=== PATIENT | male | born 1970 | race Caucasian/White ===

== ENCOUNTER 2019-08-22 22:06 | Emergency (ER) | payer OTHER ==
[2019-08-22 22:15] VITALS: BP 151/88; PULSE 93; TEMP 98.6; BMI 29.0
[2019-08-22] MEDS ORDERED: DIPHTH,PERTUSS(ACELL),TET 0.5 ML DISP.SYRIN IM ONE (22:36)
--- NOTE | 2019-08-22 22:40 | PDOC ---
Documentation entered by Rosalia Garcia SCRIBE, acting as scribe for Petr Bradshaw MD. Petr Bradshaw MD: This documentation has been prepared by the chloeibe, Rosalia Garcia SCRIBE, under my direction and personally reviewed by me in its entirety. I confirm that the documentation accurately reflects all work , treatment, procedures, and medical decision making performed by me. History of Present Illness - General Chief Complaint: Pain, Acute Stated Complaint: BILATERAL LEG ABRASIONS Exam Limitations: No Limitations - History of Present Illness Initial Comments: 08/22/19 22:36 The patient is a 49-year-old male who presents to the emergency department with a wound. 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 The patient says he was able to ambulate after the incident and reports he took naproxen prior to arrival. 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 No sore throat,. No ear pain CardioVascular: No chest pain or shortness of breath Respiratory:No cough, or wheezing. Gastrointestinal: no nausea, vomiting, diarrhea or constipation, No rectal bleeding Genitourinary: No dysuria, hematuria, or frequency Musculoskeletal: No joint or muscle pain or swelling Neurologic: No headache, vertigo, dizziness or loss of consciousness Psychiatric: nor depression Skin: +wound to lower leg. No rashes or easy bruising Endocrine: no increased thirst or abnormal weight change Allergic: no skin or latex allergy All other systems reviewed and normal Physical exam: GENERAL: The patient is awake, alert, and fully oriented, in no acute distress. HEAD: Normal with no signs of trauma. EYES: Pupils equal, round and reactive to light, extraocular movements intact, sclera anicteric, conjunctiva clear. EXTREMITIES: Normal range of motion, no edema. NEUROLOGICAL: Normal speech, normal gait. PSYCH: Normal mood, normal affect. SKIN:+Bilateral anterior murray contusion, no bony tenderness, ecchymosis and abrasion to the anterior murray mid-lower leg, not actively bleeding. Warm, Dry, normal turgor, no rashes or lesions noted. 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 Patient had a leg press that came down and hit him in the shins causing an abrasion and contusion to his anterior shins. Patient is able to ambulate with minimal difficulty. Patient is here for a tetanus shot primarily. Patient did not have any bony tenderness on palpation so x-rays were not done. Patient's abrasions were cleaned and dressed and patient was discharged. 08/22/19 22:46 Past History - Past Medical History Allergies/Adverse Reactions: Allergies Allergy/AdvReac Type Severity Reaction Status Date / Time No Known Allergies Allergy Unverified 04/24/15 22:47 Home Medications: Ambulatory Orders BUPROPion HCL "SR" [Wellbutrin Sr [Nf]] 150 mg PO BID 04/24/15 Pregabalin [Lyrica] 50 mg PO DAILY 04/24/15 Cyclobenzaprine HCl [Flexeril -] 10 mg PO TID #21 tablet 11/27/15 Psychiatric Problems: Yes - Psycho Social/Smoking Cessation Hx Smoking History: Current some day smoker Have you smoked in the past 12 months: Yes 'Breaking Loose' booklet given: 11/27/15 *Physical Exam - Vital Signs Last Vital Signs Temp Pulse Resp BP Pulse Ox 98.6 F 93 H 14 151/88 97 08/22/19 22:08 08/22/19 22:08 08/22/19 22:08 08/22/19 22:08 08/22/19 22:08 Discharge - Discharge Information Problems reviewed: Yes Clinical Impression/Diagnosis: Abrasion of leg, left Qualifiers: Encounter type: initial encounter Qualified Code(s): S80.812A - Abrasion, left lower leg, initial encounter Abrasion of leg, right Qualifiers: Encounter type: initial encounter Qualified Code(s): S80.811A - Abrasion, right lower leg, initial encounter Condition: Good Disposition: HOME - Follow up/Referral Referrals: Susana Allen MD [Primary Care Provider] - - Patient Discharge Instructions Additional Instructions: For the pain you can take naproxen or Motrin as needed. Clean the abrasions daily with some peroxide and apply bacitracin until they are scabbed over. Return to the emergency department immediately with ANY new, persistent or worsening symptoms. Continue any medications as previously prescribed by your physician. You should follow up with your primary doctor as soon as possible regarding today's emergency department visit. . Please make sure your doctor reviews the results of your emergency evaluation. Thank you for coming to the Emergency Department today for your care. It was a pleasure to see you today. Please note that your evaluation is INCOMPLETE until you follow-up with your doctor. - Post Discharge Activity
[2019-08-22] MEDS ORDERED: TETANUS AND DIPHTHERIA TOXOID 0.5 ML DISP.SYRIN IM ONE (23:02)
== END 2019-08-22 23:07 | disposition home or self-care (01) ==
LOC: FER 22:06
PROC: 3E0234Z Introduction of Serum, Toxoid and Vaccine into Muscle, Percutaneous Approach (ICD-10-PCS; principal; 2019-08-22)
DX: S80.811A Abrasion, right lower leg, initial encounter (principal); S80.812A Abrasion, left lower leg, initial encounter; W20.8XXA Other cause of strike by thrown, projected or falling object, initial encounter; Y93.89 Activity, other specified; Y92.39 Other specified sports and athletic area as the place of occurrence of the external cause; Y99.0 Civilian activity done for income or pay; F17.210 Nicotine dependence, cigarettes, uncomplicated
CPT/HCPCS: 90715; 99282-25

== ENCOUNTER 2025-07-14 08:36 | Emergency (ER) | payer OTHER ==
[2025-07-14] MEDS ORDERED: ONDANSETRON 4 MG/2 ML VIAL ONE (08:52)
[2025-07-14 08:58] VITALS: BP 142/95; PULSE 109; RESP 18; TEMP 97.5; BMI 26.6
[2025-07-14] MEDS: SODIUM CHLORIDE 1,000 ML IV STA (09:16)
[2025-07-14] MEDS: ONDANSETRON 4 MG/2 ML VIAL IVPB ONE (09:16)
[2025-07-14 10:01] LABS: ABSOLUTE IMMATURE GRANULOCYTES 0.05 x10^3/uL (0.0-0.031); BASOPHILS # 0.01 x10^3/uL (0.01-0.08); EOSINOPHIL % 0.1 % (0.8-7.0); EOSINOPHILS # 0.01 x10^3/uL (0.04-0.54); MCHC 33.0 g/dl (32.3-36.5); MEAN CELL VOLUME 89.5 fl (79.0-92.2); MEAN PLT VOLUME 9.9 fl (9.4-12.4); MONOCYTE # 0.99 x10^3/uL (0.30-0.82); MONOCYTE % 7.2 % (5.3-12.2); RDW 14.6 % (12.2-16.1)
== END 2025-07-14 10:24 | disposition home or self-care (01) ==
LOC: FER 08:36
PROC: 3E033GC Introduction of Other Therapeutic Substance into Peripheral Vein, Percutaneous Approach (ICD-10-PCS; principal; 2025-07-14)
PROC: 3E0337Z Introduction of Electrolytic and Water Balance Substance into Peripheral Vein, Percutaneous Approach (ICD-10-PCS; 2025-07-14)
DX: R11.2 Nausea with vomiting, unspecified (principal); R10.13 Epigastric pain; T50.905A Adverse effect of unspecified drugs, medicaments and biological substances, initial encounter
CPT/HCPCS: 36415; 85025; 99284-25